=== PATIENT | male | born 1975 | race Caucasian/White ===

== ENCOUNTER 2021-11-24 15:07 | Inpatient (IN) ==
[2021-11-24 15:27] LABS: POC Blood Urea Nitrogen 21 (6-20); POC Calcium, Ionized 1.17 (1.16-1.32); POC Chloride 92 (96-108); POC Creatinine 0.9 (0.6-1.2); POC Glucose, Random > 700 (70-105); POC Potassium 4.8 (3.3-5.1); POC Sodium 127 (133-145)
[2021-11-24] MEDS ORDERED: 0.9 % SODIUM CHLORIDE 1,000 ML IV ONE ×2 (15:45→17:06)
[2021-11-24 16:04] LABS: Basophils % (Auto) 1.1 % (0.0-2.0); Eosinophils # (Auto) 0.08 K/mcL (0.00-0.70); Eosinophils % (Auto) 0.9 % (0.0-7.0); Hematocrit 44.6 % (40.1-51.0); Hemoglobin 15.9 g/dL (13.7-17.5); Lymphocytes # (Auto) 2.27 K/mcL (1.50-4.80); Lymphocytes % (Auto) 25.6 % (15.5-49.0); Mean Cell Volume 91.2 fL (80.0-100.0); Mean Corpuscular HGB Conc 35.7 g/dL (31.0-36.0); Mean Platelet Volume 9.7 fL (7.4-10.4); Monocytes # (Auto) 0.74 K/mcL (0.10-0.90); Monocytes % (Auto) 8.3 % (1.0-12.0); Neutrophils % (Auto) 63.8 % (38.0-78.0); Platelet Count 286 K/mcL (140-440); RBC 4.89 M/mcL (4.63-6.08); Red Cell Distribution Width 11.4 % (11.5-14.5); WBC 8.9 K/mcL (4.5-11.0)
[2021-11-24 16:24] LABS: Beta Hydroxybutyrate 0.29 mmol/L (<0.27)
[2021-11-24 16:28] LABS: Appearance,Urine Clear (Clear); Bilirubin,Urine Negative (Negative); Color,Urine Yellow; Culture Indicated,Urine No; Glucose,Urine (UA) >=1000 mg/dL mg/dL (Negative); Ketones,Urine Negative (Negative); Leukocyte Esterase,Urine Negative /uL (Negative); Nitrate,Urine Negative (Negative); PH,Urine 6.5 (5.0-9.0); Protein,Urine Negative (Negative); Urine Blood Trace-intact ery/mcL (Negative); Urine RBC 0 /hpf (0-3); Urine Squamous Epithelial Cell 0 /hpf (0-4); Urine WBC < 1 /hpf (0-4); Urobilinogen,Urine Normal
[2021-11-24 16:45] LABS: ALT/SGPT 60 U/L (<40); AST/SGOT 38 U/L (<40); Albumin 4.5 gm/dL (3.2-5.2); Albumin/Globulin Ratio 1.6 (1.0-2.3); Alkaline Phosphatase 151 U/L (39-117); Bilirubin,Total 0.9 mg/dL (0.1-1.0); Blood Urea Nitrogen 18 mg/dL (6-20); Calcium 9.8 mg/dL (8.6-10.4); Carbon Dioxide 24 mmol/L (22-30); Chloride 85 mmol/L (96-108); Globulin 2.8 gm/dL (2.2-3.7); Glomerular Filtration Rate 90; Glucose 782 mg/dL (70-105)
[2021-11-24] MEDS ORDERED: INSULIN REGULAR, HUMAN 1 UNIT/0.01 ML UNIT IV ONE (17:07)
--- NOTE | 2021-11-24 17:29 | Emergency Department Note ---
HPI General Chief complaint: Sorethroat Time Seen by Provider: 11/24/21 15:09 Source: patient Mode of arrival: ambulatory History of Present Illness HPI Narrative: 46-year-old male patient with history of hypertension presents with complaints of dry mouth, white plaques to his tongue, increased thirst and urination, and sore throat x4 days. He is concerned about thrush. [id number] blood glucose is over 700. No previous history of diabetes. Of note he also endorses new onset of blurry far vision for the last few days. Related Data Home Medications Medication Instructions Recorded Confirmed amlodipine 10 mg tablet See Rx Instructions PO .COMPLEX 11/04/19 11/24/21 cyclobenzaprine 10 mg tablet See Rx Instructions PO .COMPLEX 11/04/19 11/24/21 hydrocodone 10 mg-acetaminophen See Rx Instructions PO .COMPLEX 11/04/19 11/24/21 325 mg tablet PRN Pain losartan 100 mg tablet See Rx Instructions PO .COMPLEX 11/04/19 11/24/21 omeprazole 40 mg capsule,delayed See Rx Instructions PO .COMPLEX 11/04/19 11/24/21 release rizatriptan 10 mg tablet See Rx Instructions PO .COMPLEX 11/04/19 11/24/21 sildenafil 100 mg tablet See Rx Instructions PO .COMPLEX 11/04/19 11/24/21 gabapentin 300 mg capsule 1 cap PO TID 11/24/21 11/24/21 hydrochlorothiazide 50 mg tablet 1 tab PO QDAY 11/24/21 11/24/21 Allergies Allergy/AdvReac Type Severity Reaction Status Date / Time No Known Drug Allergies Allergy Verified 11/24/21 15:10 Review of Systems ROS ROS Narrative: Narrative: All systems ED: reviewed and negative except as stated. PFSH Narrative Patient History Narrative: Narrative: Medical/Surgical/Family History All Active Problems (Updated 11/24/21 @ 19:47 by Francie Duncan PA-C) Diabetes mellitus, new onset (Acute) Acidosis, lactic (Acute) Acute dehydration (Acute) Oral candidiasis (Acute) Pseudohyponatremia (Acute) Hyperglycemia (Acute) Conjunctivitis (Acute) History of surgery (Chronic) Occipital neuralgia (Chronic) Myofascial pain (Acute) Ankylosing spondylitis (Acute) Inflammatory arthritis (Acute) Polyarthralgia (Acute) Chronic pain (Chronic) Tinea versicolor (Chronic) Chronic neck pain (Acute) Bilateral hand pain (Chronic) Chronic low back pain (Chronic) Generalized anxiety disorder (Chronic) Moderate recurrent major depression (Chronic) Migraines (Chronic) Bilateral carpal tunnel syndrome (Chronic) GERD (gastroesophageal reflux disease) (Chronic) Mixed hyperlipidemia (Chronic) penitentiary current use of non-steroidal anti-inflammatories (NSAID) (Chronic) manager intermediate prescription opiate use (Chronic) Hypertension (Chronic) Marijuana use (Chronic) PAIGE positive (Acute) Calcaneal spur of left foot (Chronic) Calcaneal spur of right foot (Chronic) Peroneal tendinitis, right leg (Chronic) Plantar fasciitis (Chronic) Pes cavus (Chronic) Callus of foot (Chronic) PTSD (post-traumatic stress disorder) (Chronic) Paresthesia of both hands (Chronic) Lumbar radiculitis (Chronic) Cervical radiculopathy (Chronic) Obesity (Chronic) Primary generalized (osteo)arthritis (Chronic) 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) Sinus tarsi syndrome of left foot (Chronic) Os trigonum (Chronic) Equinus deformity of foot, acquired (Chronic) Equinus contracture of ankle (Chronic) Erectile dysfunction (Chronic) Rash and other nonspecific skin eruption (Acute) Laryngopharyngeal reflux (Chronic) Lymphadenopathy of head and neck (Chronic) Unspecified inflammatory polyarthropathy (Chronic) Contact dermatitis (Acute) Pharyngitis (Acute) Urethritis (Chronic) Hypertension, essential, benign (Chronic) Shortness of breath (Chronic) Rhinitis medicamentosa (Chronic) Medical History PAIGE positive Ankylosing spondylitis Bilateral carpal tunnel syndrome Bilateral hand pain Calcaneal spur of left foot Calcaneal spur of right foot Callus of foot Bilateral Cervical radiculopathy Chronic low back pain Chronic neck pain Chronic pain Conjunctivitis Contact dermatitis Equinus contracture of ankle Equinus deformity of foot, acquired Erectile dysfunction Generalized anxiety disorder GERD (gastroesophageal reflux disease) Hypertension Hypertension, essential, benign Inflammatory arthritis Laryngopharyngeal reflux penitentiary current use of non-steroidal anti-inflammatories (NSAID) penitentiary prescription opiate use Lumbar radiculitis Lymphadenopathy of head and neck Marijuana use Migraines Mixed hyperlipidemia Moderate recurrent major depression Myofascial pain Obesity Occipital neuralgia Os trigonum Paresthesia of both hands Peroneal tendinitis, right leg Pes cavus Pharyngitis Plantar fasciitis Polyarthralgia Primary generalized (osteo)arthritis PTSD (post-traumatic stress disorder) Rash and other nonspecific skin eruption Rhinitis medicamentosa Shortness of breath Sinus tarsi syndrome of left foot Sinus tarsi syndrome of right foot Tinea versicolor Unspecified inflammatory polyarthropathy Urethritis Surgical History History of Achilles tendon repair (~2013) Left Achilles tendon lengthening/ankle repair History of surgery MICHAEL #3 w/cath, w/o sed 06/01/2019 MICHAEL #2 w/cath, w/o sed 05/03/19 MICHAEL #1 w/cath, w/o sed 04/06/19 MICHAEL #1 w/cath, w/o sed 09/08/17 MICHAEL #1 w/cath w/o sed 01/20/2017 MICHAEL #3 w/cath w/o sed 09/17/2016 Occipital Nerve Block, Bilat w/o sed 09/17/2016 MICHAEL #2 w/cath w/o sed 07/30/2016 MICHAEL #1 w/cath, w/o sed 07/15/2016 Family History Father Melanoma Chronic pain Son Thyroid disorder Social History Smoking Status: Never smoker Alcohol Intake Frequency: does not drink Substance Use: marijuana Exam Narrative Narrative: General: AOx3, NAD, nontoxic appearing. Pleasant and conversant. HEENT: PERRL, EOMI, normocephalic. Dry mucous membranes. Normal facies and multiple missing teeth. White plaques notable to the tongue and oropharynx. Chest: Symmetric, no pain to palpation Respiratory: Lungs clear to auscultation bilaterally. No respiratory distress. Unlabored breathing. Heart: Regular rate and rhythm, no murmurs/clicks/rubs. Abdomen: Non-tender, Non distended Extremities: Warm and well perfused. No edema. DP 2+ bilaterally. No venous stasis. Neuro: No focal deficits. Cranial nerves II-XII grossly normal. Skin: Warm dry, no rashes or lesions, no cyanosis. Psych: Normal mood and affect Heme/Lymph: No abnormal bruising Course Course Course Narrative: 46-year-old male patient presents with new onset diabetes and thrush Reevaluation(s) Reevaluation #1: Will evaluate for DKA with basic labs Obtain urine We will treat for thrush with oral nystatin swish and spit Establish IV give IV fluids Reevaluation #2: Lactic acid is 4.5. Blood glucose is over 700. Anion gap is normal at 16. Urine is negative for ketones. Will give 7 units of IV regular insulin x1 dose and monitor. Recheck lactic acid after he receives a second liter of fluids Given his new onset diabetes and we are in the weekend, I recommend admission for better control and management. He will need diabetes education. Vital Signs Vital signs: Vital Signs Temperature 97.3 F 11/24/21 15:07 Pulse Rate 92 H 11/24/21 15:07 Respiratory Rate 16 11/24/21 15:07 Blood Pressure 156/95 11/24/21 15:07 Pulse Oximetry (%) 95 11/24/21 15:07 Oxygen Delivery Method 11/24/21 15:07 Temperature 97.3 F 11/24/21 18:45 Pulse Rate 87 11/24/21 18:45 Respiratory Rate 16 11/24/21 18:45 Blood Pressure 161/93 11/24/21 18:45 Pulse Oximetry (%) 93 11/24/21 18:45 Oxygen Delivery Method 11/24/21 15:07 MDM MDM Narrative Medical decision making narrative: New onset diabetes Severe hyperglycemia Lactic acidosis Thrush Patient will need admission for blood glucose control and initiation of antidiabetic medications. I spoke with the hospitalist who has accepted the [facility] for admission. Lab Data Result diagrams: 11/24/21 15:31 11/24/21 15:31 Labs: Lab Results 11/24/21 11/24/21 11/24/21 Range/Units 15:24 15:30 15:31 WBC 8.9 (4.5-11.0) K/mcL RBC 4.89 (4.63-6.08) M/mcL Hgb 15.9 (13.7-17.5) g/dL Hct 44.6 (40.1-51.0) % POC Hct 46.0 (41-55) MCV 91.2 (80.0-100.0) fL MCH 32.5 (26.0-34.0) pg MCHC 35.7 (31.0-36.0) g/dL RDW 11.4 L (11.5-14.5) % Plt Count 286 (140-440) K/mcL MPV 9.7 (7.4-10.4) fL Immature Gran % (Auto) 0.3 (0.0-0.5) % Neut % (Auto) 63.8 (38.0-78.0) % Lymph % (Auto) 25.6 (15.5-49.0) % [place] % (Auto) 8.3 (1.0-12.0) % Eos % (Auto) 0.9 (0.0-7.0) % Baso % (Auto) 1.1 (0.0-2.0) % Lymph # (Auto) 2.27 (1.50-4.80) K/mcL [place] # (Auto) 0.74 (0.10-0.90) K/mcL Eos # (Auto) 0.08 (0.00-0.70) K/mcL Baso # (Auto) 0.10 (0.00-0.30) K/mcL Immature Gran # 0.03 (0.00-0.05) K/mcl Absolute Neutrophils 5.69 (1.80-8.00) K/mcL POC VBG pH 7.41 (7.32-7.42) POC VBG pCO2 at Temp 44.1 (41-51) POC VBG pO2 42 H (25-40) POC VBG HCO3 27.9 (24-28) POC VBG Total CO2 29.0 (25-29) POC Venous O2 Sat 78.0 H (40-70) POC VBG Base Excess 3.0 H (-2-2) VBG Lactic Acid 4.5 H* (0.5-2) POC Sodium 127 L (133-145) Sodium (133-145) mmol/L POC Potassium 4.8 (3.3-5.1) Potassium (3.3-5.1) mmol/L POC Chloride 92 L (96-108) Chloride (96-108) mmol/L Carbon Dioxide (22-30) mmol/L POC Total CO2 28.0 (22-30) Anion Gap (8.0-16.0) POC BUN 21 H (6-20) BUN (6-20) mg/dL Creatinine (0.7-1.2) mg/dL POC Creatinine 0.9 (0.6-1.2) GFR Calculation Glucose (70-105) mg/dL POC Glucose > 700 H* (70-105) Calcium (8.6-10.4) mg/dL POC WB Ioniz Calcium 1.17 (1.16-1.32) Total Bilirubin (0.1-1.0) mg/dL AST (<40) U/L ALT (<40) U/L Alkaline Phosphatase (39-117) U/L Total Protein (5.9-8.4) gm/dL Albumin (3.2-5.2) gm/dL Globulin (2.2-3.7) gm/dL Albumin/Globulin Ratio (1.0-2.3) Beta-Hydroxybutyrate (<0.27) mmol/L Urine Color Urine Appearance (Clear) Urine pH (5.0-9.0) Ur Specific [place] (1.000-1.035) Urine Protein (Negative) mg/dL Urine Glucose (UA) (Negative) mg/dL Urine Ketones (Negative) mg/dL Urine Occult Blood (Negative) tia/mcL Urine Nitrate (Negative) Urine Bilirubin (Negative) mg/dL Urine Urobilinogen mg/dL Ur Leukocyte Esterase (Negative) /uL Urine RBC (0-3) /hpf Urine WBC (0-4) /hpf Ur Squamous Epith Cells (0-4) /hpf Urine Bacteria (0) /hpf Ur Culture Indicated? 11/24/21 11/24/21 11/24/21 Range/Units 15:31 15:31 15:35 WBC (4.5-11.0) K/mcL RBC (4.63-6.08) M/mcL Hgb (13.7-17.5) g/dL Hct (40.1-51.0) % POC Hct (41-55) MCV (80.0-100.0) fL MCH (26.0-34.0) pg MCHC (31.0-36.0) g/dL RDW (11.5-14.5) % Plt Count (140-440) K/mcL MPV (7.4-10.4) fL Immature Gran % (Auto) (0.0-0.5) % Neut % (Auto) (38.0-78.0) % Lymph % (Auto) (15.5-49.0) % [place] % (Auto) (1.0-12.0) % Eos % (Auto) (0.0-7.0) % Baso % (Auto) (0.0-2.0) % Lymph # (Auto) (1.50-4.80) K/mcL [place] # (Auto) (0.10-0.90) K/mcL Eos # (Auto) (0.00-0.70) K/mcL Baso # (Auto) (0.00-0.30) K/mcL Immature Gran # (0.00-0.05) K/mcl Absolute Neutrophils (1.80-8.00) K/mcL POC VBG pH (7.32-7.42) POC VBG pCO2 at Temp (41-51) POC VBG pO2 (25-40) POC VBG HCO3 (24-28) POC VBG Total CO2 (25-29) POC Venous O2 Sat (40-70) POC VBG Base Excess (-2-2) VBG Lactic Acid (0.5-2) POC Sodium (133-145) Sodium 125 L (133-145) mmol/L POC Potassium (3.3-5.1) Potassium 4.6 (3.3-5.1) mmol/L POC Chloride (96-108) Chloride 85 L (96-108) mmol/L Carbon Dioxide 24 (22-30) mmol/L POC Total CO2 (22-30) Anion Gap 16.0 (8.0-16.0) POC BUN (6-20) BUN 18 (6-20) mg/dL Creatinine 1.0 (0.7-1.2) mg/dL POC Creatinine (0.6-1.2) GFR Calculation 90 Glucose 782 H* (70-105) mg/dL POC Glucose (70-105) Calcium 9.8 (8.6-10.4) mg/dL POC WB Ioniz Calcium (1.16-1.32) Total Bilirubin 0.9 (0.1-1.0) mg/dL AST 38 (<40) U/L ALT 60 H (<40) U/L Alkaline Phosphatase 151 H (39-117) U/L Total Protein 7.3 (5.9-8.4) gm/dL Albumin 4.5 (3.2-5.2) gm/dL Globulin 2.8 (2.2-3.7) gm/dL Albumin/Globulin Ratio 1.6 (1.0-2.3) Beta-Hydroxybutyrate 0.29 H (<0.27) mmol/L Urine Color Yellow Urine Appearance Clear (Clear) Urine pH 6.5 (5.0-9.0) Ur Specific [place] 1.010 (1.000-1.035) Urine Protein Negative (Negative) mg/dL Urine Glucose (UA) >=1000 mg/dl A (Negative) mg/dL Urine Ketones Negative (Negative) mg/dL Urine Occult Blood Trace-intact A (Negative) tia/mcL Urine Nitrate Negative (Negative) Urine Bilirubin Negative (Negative) mg/dL Urine Urobilinogen Normal mg/dL Ur Leukocyte Esterase Negative (Negative) /uL Urine RBC 0 (0-3) /hpf Urine WBC < 1 (0-4) /hpf Ur Squamous Epith Cells 0 (0-4) /hpf Urine Bacteria None (0) /hpf Ur Culture Indicated? No 11/24/21 Range/Units 17:46 WBC (4.5-11.0) K/mcL RBC (4.63-6.08) M/mcL Hgb (13.7-17.5) g/dL Hct (40.1-51.0) % POC Hct (41-55) MCV (80.0-100.0) fL MCH (26.0-34.0) pg MCHC (31.0-36.0) g/dL RDW (11.5-14.5) % Plt Count (140-440) K/mcL MPV (7.4-10.4) fL Immature Gran % (Auto) (0.0-0.5) % Neut % (Auto) (38.0-78.0) % Lymph % (Auto) (15.5-49.0) % [place] % (Auto) (1.0-12.0) % Eos % (Auto) (0.0-7.0) % Baso % (Auto) (0.0-2.0) % Lymph # (Auto) (1.50-4.80) K/mcL [place] # (Auto) (0.10-0.90) K/mcL Eos # (Auto) (0.00-0.70) K/mcL Baso # (Auto) (0.00-0.30) K/mcL Immature Gran # (0.00-0.05) K/mcl Absolute Neutrophils (1.80-8.00) K/mcL POC VBG pH 7.40 (7.32-7.42) POC VBG pCO2 at Temp 49.2 (41-51) POC VBG pO2 28 (25-40) POC VBG HCO3 30.8 H (24-28) POC VBG Total CO2 32.0 H (25-29) POC Venous O2 Sat 52.0 (40-70) POC VBG Base Excess 6.0 H* (-2-2) VBG Lactic Acid 1.5 (0.5-2) POC Sodium (133-145) Sodium (133-145) mmol/L POC Potassium (3.3-5.1) Potassium (3.3-5.1) mmol/L POC Chloride (96-108) Chloride (96-108) mmol/L Carbon Dioxide (22-30) mmol/L POC Total CO2 (22-30) Anion Gap (8.0-16.0) POC BUN (6-20) BUN (6-20) mg/dL Creatinine (0.7-1.2) mg/dL POC Creatinine (0.6-1.2) GFR Calculation Glucose (70-105) mg/dL POC Glucose (70-105) Calcium (8.6-10.4) mg/dL POC WB Ioniz Calcium (1.16-1.32) Total Bilirubin (0.1-1.0) mg/dL AST (<40) U/L ALT (<40) U/L Alkaline Phosphatase (39-117) U/L Total Protein (5.9-8.4) gm/dL Albumin (3.2-5.2) gm/dL Globulin (2.2-3.7) gm/dL Albumin/Globulin Ratio (1.0-2.3) Beta-Hydroxybutyrate (<0.27) mmol/L Urine Color Urine Appearance (Clear) Urine pH (5.0-9.0) Ur Specific [place] (1.000-1.035) Urine Protein (Negative) mg/dL Urine Glucose (UA) (Negative) mg/dL Urine Ketones (Negative) mg/dL Urine Occult Blood (Negative) tia/mcL Urine Nitrate (Negative) Urine Bilirubin (Negative) mg/dL Urine Urobilinogen mg/dL Ur Leukocyte Esterase (Negative) /uL Urine RBC (0-3) /hpf Urine WBC (0-4) /hpf Ur Squamous Epith Cells (0-4) /hpf Urine Bacteria (0) /hpf Ur Culture Indicated? Discharge Plan Patient/Caregiver Discharge Instructions Pt seen by HR ASSOCIATE/PA only: Yes Clinical Impression: Diabetes mellitus, new onset, Acidosis, lactic, Acute dehydration Patient Disposition: Xfer As Inpt ([facility]) Discharge Date/Time: 11/24/21 18:57 Discharge Location: [facility]
--- NOTE | 2021-11-24 18:31 | Internal Med History&Physical ---
HPI History of Present Illness Patient information: Note initiated : 11/24/21 at 6:17 pm Service Date, if different from initiated Date: [] Patient: Fermin Ayoub 46 y/o M admitted on for swollen tongue. Chief Complaint: [thrush] Chief complaint: thrush History of present illness: Mr. Ayoub is a 46 year old M history of essential hypertensions, GERD, presenting with 4-day history of tongue thrust, polydipsia, polyuria, and general body weakness. There is no prior similar episode. He does not have a previous history of diabetes. His maternal grandfather had a history of diabetes. Over the past 4 days, he has noticed tongue thrust, general body weakness, polydipsia, and polyuria. He denies any weight changes. He denies any appetite changes. Vital signs at ED presentation significant for elevated blood pressure as high as 170s over 90s mmHg. Rest of the vital signs within normal limits. Labs significant for blood glucose level was elevated to over 700, with pseudohyponatremia serum sodium level 125. Venous blood gas 4.5 with a repeat of 1.5. Ph7.41, with a bicarb of 27.9. Beta hydroxybutyrate 0.29. UA positive for glucose but negative for ketones. No signs of urinary tract infections. Admission request was called for hyper ischemia associated with likely new onset diabetes. Constitutional Constitutional: Present weakness; Absent chills, excessive sweating, fatigue or fever(s) Additional comments: Polydipsia and polyuria EENT Eyes: Absent blurry vision, change in vision, loss of vision or other visual disturbances Ears: Absent decreased hearing or tinnitus Nose, mouth and throat: Absent abnormal hearing, dry mouth, headache(s), nasal congestion or sore throat Additional comments: Tongue thrush Cardiovascular Cardiovascular: Absent chest pain, chest pain at rest, edema, irregular heart rhythm or palpatations Respiratory Respiratory: Absent cough, dyspnea or wheezing Gastrointestinal Gastrointestinal: Absent abdominal pain, constipation, diarrhea, nausea or vomiting Genitourinary Genitourinary: urinary frequency Musculoskeletal Musculoskeletal: Absent back pain, deformity, limited range of motion, muscle cramps, muscle weakness or numbness Integumentary Integumentary: Absent lesions, rash or wounds Neurological Neurological: Absent focal weakness, headache(s) or numbness Psychiatric Psychiatric: Absent anxiety, depression or hallucinations PFSH PFSH All Active Problems (Updated 11/24/21 @ 18:30 by Jose C Jade MD) Oral candidiasis (Acute) Pseudohyponatremia (Acute) Hyperglycemia (Acute) Conjunctivitis (Acute) History of surgery (Chronic) Occipital neuralgia (Chronic) Myofascial pain (Acute) Ankylosing spondylitis (Acute) Inflammatory arthritis (Acute) Polyarthralgia (Acute) Chronic pain (Chronic) Tinea versicolor (Chronic) Chronic neck pain (Acute) Bilateral hand pain (Chronic) Chronic low back pain (Chronic) Generalized anxiety disorder (Chronic) Moderate recurrent major depression (Chronic) Migraines (Chronic) Bilateral carpal tunnel syndrome (Chronic) GERD (gastroesophageal reflux disease) (Chronic) Mixed hyperlipidemia (Chronic) alf current use of non-steroidal anti-inflammatories (NSAID) (Chronic) [employer] prescription opiate use (Chronic) Hypertension (Chronic) Marijuana use (Chronic) PAIGE positive (Acute) Calcaneal spur of left foot (Chronic) Calcaneal spur of right foot (Chronic) Peroneal tendinitis, right leg (Chronic) Plantar fasciitis (Chronic) Pes cavus (Chronic) Callus of foot (Chronic) PTSD (post-traumatic stress disorder) (Chronic) Paresthesia of both hands (Chronic) Lumbar radiculitis (Chronic) Cervical radiculopathy (Chronic) Obesity (Chronic) Primary generalized (osteo)arthritis (Chronic) 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) Sinus tarsi syndrome of left foot (Chronic) Os trigonum (Chronic) Equinus deformity of foot, acquired (Chronic) Equinus contracture of ankle (Chronic) Erectile dysfunction (Chronic) Rash and other nonspecific skin eruption (Acute) Laryngopharyngeal reflux (Chronic) Lymphadenopathy of head and neck (Chronic) Unspecified inflammatory polyarthropathy (Chronic) Contact dermatitis (Acute) Pharyngitis (Acute) Urethritis (Chronic) Hypertension, essential, benign (Chronic) Shortness of breath (Chronic) Rhinitis medicamentosa (Chronic) Medical History PAIGE positive Ankylosing spondylitis Bilateral carpal tunnel syndrome Bilateral hand pain Calcaneal spur of left foot Calcaneal spur of right foot Callus of foot Bilateral Cervical radiculopathy Chronic low back pain Chronic neck pain Chronic pain Conjunctivitis Contact dermatitis Equinus contracture of ankle Equinus deformity of foot, acquired Erectile dysfunction Generalized anxiety disorder GERD (gastroesophageal reflux disease) Hypertension Hypertension, essential, benign Inflammatory arthritis Laryngopharyngeal reflux alf current use of non-steroidal anti-inflammatories (NSAID) alf prescription opiate use Lumbar radiculitis Lymphadenopathy of head and neck Marijuana use Migraines Mixed hyperlipidemia Moderate recurrent major depression Myofascial pain Obesity Occipital neuralgia Os trigonum Paresthesia of both hands Peroneal tendinitis, right leg Pes cavus Pharyngitis Plantar fasciitis Polyarthralgia Primary generalized (osteo)arthritis PTSD (post-traumatic stress disorder) Rash and other nonspecific skin eruption Rhinitis medicamentosa Shortness of breath Sinus tarsi syndrome of left foot Sinus tarsi syndrome of right foot Tinea versicolor Unspecified inflammatory polyarthropathy Urethritis Surgical History History of Achilles tendon repair (~2013) Left Achilles tendon lengthening/ankle repair History of surgery MICHAEL #3 w/cath, w/o sed 06/01/2019 MICHAEL #2 w/cath, w/o sed 05/03/19 MICHAEL #1 w/cath, w/o sed 04/06/19 MICHAEL #1 w/cath, w/o sed 09/08/17 MICHAEL #1 w/cath w/o sed 01/20/2017 MICHAEL #3 w/cath w/o sed 09/17/2016 Occipital Nerve Block, Bilat w/o sed 09/17/2016 MICHAEL #2 w/cath w/o sed 07/30/2016 MICHAEL #1 w/cath, w/o sed 07/15/2016 Family History Father Melanoma Chronic pain Son Thyroid disorder Social History marital status: single occupational status: disabled physical activity: none alcohol intake frequency: does not drink substance use type: marijuana MEDS/ALLERGIES Home Medications and Allergies Home Medications Medication Instructions Recorded Confirmed Type pregabalin 75 mg capsule (Lyrica) 75 mg PO QDAY 10/25/19 05/22/20 History amlodipine 10 mg tablet See Rx Instructions PO .COMPLEX 11/04/19 05/22/20 History bupropion HCl 100 mg tablet See Rx Instructions PO .COMPLEX 11/04/19 05/22/20 History cyclobenzaprine 10 mg tablet See Rx Instructions PO .COMPLEX 11/04/19 05/22/20 History diclofenac submicronized 18 mg See Rx Instructions PO .COMPLEX 11/04/19 05/22/20 History capsule hydrocodone 10 mg-acetaminophen See Rx Instructions PO .COMPLEX PRN 11/04/19 05/22/20 History 325 mg tablet losartan 100 mg tablet See Rx Instructions PO .COMPLEX 11/04/19 05/22/20 History omeprazole 40 mg capsule,delayed See Rx Instructions PO .COMPLEX 11/04/19 05/22/20 History release rizatriptan 10 mg tablet See Rx Instructions PO .COMPLEX 11/04/19 05/22/20 History sildenafil 100 mg tablet See Rx Instructions PO .COMPLEX 11/04/19 05/22/20 History Allergies Allergy/AdvReac Type Severity Reaction Status Date / Time No Known Drug Allergies Allergy Verified 11/24/21 15:10 EXAM Constitutional Vitals: Temp Pulse Resp BP Pulse Ox O2 Del Method 36.3 C 87 16 154/91 95 11/24/21 15:07 11/24/21 17:47 11/24/21 15:07 11/24/21 17:47 11/24/21 17:47 11/24/21 15:07 General appearance: cooperative and no acute distress Head Head exam: Present atraumatic and normocephalic Eye Eye exam: Present EOMI and PERRL ENT ENT exam: Present mucous membranes moist and normal external ear exam; Absent normal exam Additional comments: tongue thrush Neck Neck exam: Present normal inspection; Absent lymphadenopathy, tenderness or thyromegaly Respiratory Respiratory exam: Absent accessory muscle use, respiratory distress or wheezes Cardiovascular Cardiovascular exam: Present normal rate and rhythm; Absent JVD GI/Abdominal GI/Abdominal exam: Present normal bowel sounds and soft; Absent organomegaly or tenderness Rectal Rectal exam: Present deferred Extremities Exam Extremities exam: Present full ROM, normal capillary refill and normal inspection; Absent tenderness Neurological Exam Neurological exam: Present alert, CN II-XII intact and oriented X3; Absent motor sensory deficit Psychiatric Psychiatric exam: Present normal affect and normal mood; Absent anxious or depressed Skin Skin exam: Present dry and intact DATA Data Completed and Pending Labs: Labs from last 24 hours 11/24/21 11/24/21 11/24/21 17:46 15:35 15:31 WBC RBC Hgb Hct POC Hct MCV MCH MCHC RDW Plt Count MPV Immature Gran % (Auto) Neut % (Auto) Lymph % (Auto) Callahan % (Auto) Eos % (Auto) Baso % (Auto) Lymph # (Auto) Callahan # (Auto) Eos # (Auto) Baso # (Auto) Immature Gran # Absolute Neutrophils POC VBG pH 7.40 POC VBG pCO2 at Temp 49.2 POC VBG pO2 28 POC VBG HCO3 30.8 H POC VBG Total CO2 32.0 H POC Venous O2 Sat 52.0 POC VBG Base Excess 6.0 H* VBG Lactic Acid 1.5 POC Sodium Sodium POC Potassium Potassium POC Chloride Chloride Carbon Dioxide POC Total CO2 Anion Gap POC BUN BUN Creatinine POC Creatinine GFR Calculation Glucose POC Glucose Calcium POC WB Ioniz Calcium Total Bilirubin AST ALT Alkaline Phosphatase Total Protein Albumin Globulin Albumin/Globulin Ratio Beta-Hydroxybutyrate 0.29 H Urine Color Yellow Urine Appearance Clear Urine pH 6.5 Ur Specific [place] 1.010 Urine Protein Negative Urine Glucose (UA) >=1000 mg/dl A Urine Ketones Negative Urine Occult Blood Trace-intact A Urine Nitrate Negative Urine Bilirubin Negative Urine Urobilinogen Normal Ur Leukocyte Esterase Negative Urine RBC 0 Urine WBC < 1 Ur Squamous Epith Cells 0 Urine Bacteria None Ur Culture Indicated? No 11/24/21 11/24/21 11/24/21 15:31 15:31 15:30 WBC 8.9 RBC 4.89 Hgb 15.9 Hct 44.6 POC Hct MCV 91.2 MCH 32.5 MCHC 35.7 RDW 11.4 L Plt Count 286 MPV 9.7 Immature Gran % (Auto) 0.3 Neut % (Auto) 63.8 Lymph % (Auto) 25.6 Callahan % (Auto) 8.3 Eos % (Auto) 0.9 Baso % (Auto) 1.1 Lymph # (Auto) 2.27 Callahan # (Auto) 0.74 Eos # (Auto) 0.08 Baso # (Auto) 0.10 Immature Gran # 0.03 Absolute Neutrophils 5.69 POC VBG pH 7.41 POC VBG pCO2 at Temp 44.1 POC VBG pO2 42 H POC VBG HCO3 27.9 POC VBG Total CO2 29.0 POC Venous O2 Sat 78.0 H POC VBG Base Excess 3.0 H VBG Lactic Acid 4.5 H* POC Sodium Sodium 125 L POC Potassium Potassium 4.6 POC Chloride Chloride 85 L Carbon Dioxide 24 POC Total CO2 Anion Gap 16.0 POC BUN BUN 18 Creatinine 1.0 POC Creatinine GFR Calculation 90 Glucose 782 H* POC Glucose Calcium 9.8 POC WB Ioniz Calcium Total Bilirubin 0.9 AST 38 ALT 60 H Alkaline Phosphatase 151 H Total Protein 7.3 Albumin 4.5 Globulin 2.8 Albumin/Globulin Ratio 1.6 Beta-Hydroxybutyrate Urine Color Urine Appearance Urine pH Ur Specific Enterprise Urine Protein Urine Glucose (UA) Urine Ketones Urine Occult Blood Urine Nitrate Urine Bilirubin Urine Urobilinogen Ur Leukocyte Esterase Urine RBC Urine WBC Ur Squamous Epith Cells Urine Bacteria Ur Culture Indicated? 11/24/21 15:24 WBC RBC Hgb Hct POC Hct 46.0 MCV MCH MCHC RDW Plt Count MPV Immature Gran % (Auto) Neut % (Auto) Lymph % (Auto) Callahan % (Auto) Eos % (Auto) Baso % (Auto) Lymph # (Auto) Callahan # (Auto) Eos # (Auto) Baso # (Auto) Immature Gran # Absolute Neutrophils POC VBG pH POC VBG pCO2 at Temp POC VBG pO2 POC VBG HCO3 POC VBG Total CO2 POC Venous O2 Sat POC VBG Base Excess VBG Lactic Acid POC Sodium 127 L Sodium POC Potassium 4.8 Potassium POC Chloride 92 L Chloride Carbon Dioxide POC Total CO2 28.0 Anion Gap POC BUN 21 H BUN Creatinine POC Creatinine 0.9 GFR Calculation Glucose POC Glucose > 700 H* Calcium POC WB Ioniz Calcium 1.17 Total Bilirubin AST ALT Alkaline Phosphatase Total Protein Albumin Globulin Albumin/Globulin Ratio Beta-Hydroxybutyrate Urine Color Urine Appearance Urine pH Ur Specific Enterprise Urine Protein Urine Glucose (UA) Urine Ketones Urine Occult Blood Urine Nitrate Urine Bilirubin Urine Urobilinogen Ur Leukocyte Esterase Urine RBC Urine WBC Ur Squamous Epith Cells Urine Bacteria Ur Culture Indicated? A/P Assessment and plan (1) Hyperglycemia: Status: Acute (2) Pseudohyponatremia: Status: Acute (3) Migraines: Status: Chronic (4) GERD (gastroesophageal reflux disease): Status: Chronic (5) Hypertension: Status: Chronic (6) Oral candidiasis: Status: Acute Narrative A/P Narrative: Assessment and Plans: 1. Hypercalcemia likely new onset diabetes: In patients MedSurg Status post regular insulin and IV fluid boluses given in the ED Hemoglobin A1c Weight-based insulin Lantus 0.5 unit/kg body weight according to obesity level which means 50 units subacute qHS High dose SSI AC HS Accu Chek AC HS Hypoglycemia protocol Diabetic diet Diabetes education 2. Oral candidiasis: Nystatin SSW 3. Essential Hypertension: Losartan Amlodipine Hydralazine 10mg IV q4-6hr PRN SBP>=180 and/or DBP>=110mmHg 4. GERD: Continue oral PPI from home regimen 5. Migraine headache: Rizatriptan PRN migraine headache GI ppx: Continue oral PPI from home regimen DVT ppx: Lovenox Code status: Full Prognosis: stable Disposition: inpatient med surg Time Spent With Patient Time: Total time spent is greater than 50% in coordination of care (as documented) at patient's floor/unit and/or counseling patient: Total time spent with greater than 50% in coordination of care (as documented) at patient's floor/unit and/or counseling patient:: 50 - 70 minutes
[2021-11-24] MEDS ORDERED: ONDANSETRON 4 MG/2 ML VIAL IV PRN (19:14)
[2021-11-24] MEDS ORDERED: ACETAMINOPHEN 325 MG TABLET PO PRN (19:14)
[2021-11-24] MEDS ORDERED: DEXTROSE 31 GM ORAL.SUSP PO PRN (19:14)
[2021-11-24] MEDS ORDERED: ZOLPIDEM 5 MG TABLET PO PRN (19:14)
[2021-11-24] MEDS ORDERED: DEXTROSE 50% 50 ML VIAL IV PRN (19:14)
[2021-11-24] MEDS ORDERED: IBUPROFEN 600 MG TABLET PO PRN (19:14)
[2021-11-24] MEDS ORDERED: hydrALAZINE 20 MG/ML VIAL IV PRN (19:14)
[2021-11-24] MEDS ORDERED: IPRATROPIUM/ALBUTEROL 3 ML AMPUL.NEB NEB PRN (19:14)
[2021-11-24 19:54] LABS: Hemoglobin A1C 10.9 % Hgb (4.0-6.0)
[2021-11-24] MEDS ORDERED: RIZATRIPTAN 10 MG TABLET SL PRN (20:00)
[2021-11-24] MEDS: INSULIN GLARGINE, HUMAN 1 UNIT/0.01 ML SQ SCH (21:20)
[2021-11-24] MEDS: DOCUSATE SODIUM 100 MG CAPSULE PO SCH (21:20)
[2021-11-24] MEDS: NYSTATIN 500,000 UNITS/5 ML ORAL.SUSP SSP SCH (21:20)
[2021-11-24] MEDS: SENNOSIDES 1 TABLET PO SCH (21:20)
[2021-11-24] MEDS: INSULIN LISPRO 1 UNIT/0.01 ML UNIT SQ SCH ×2 (21:22→23:02)
[2021-11-24] MEDS: 0.9 % SODIUM CHLORIDE 10 ML SYRINGE IV SCH (21:23)
[2021-11-24] MEDS: HYDROcodone/APAP 10/325MG TABLET PO PRN (23:03)
[2021-11-25] MEDS: 0.9 % SODIUM CHLORIDE 10 ML SYRINGE IV SCH ×3 (05:22→21:58)
[2021-11-25] MEDS: HYDROcodone/APAP 10/325MG TABLET PO PRN ×3 (05:23→19:53)
[2021-11-25] MEDS: CYCLOBENZAPRINE 10 MG TABLET PO PRN ×3 (05:25→21:56)
[2021-11-25 06:03] LABS: Basophils # (Auto) 0.11 K/mcL (0.00-0.30); Basophils % (Auto) 1.4 % (0.0-2.0); Eosinophils # (Auto) 0.17 K/mcL (0.00-0.70); Eosinophils % (Auto) 2.2 % (0.0-7.0); Hematocrit 42.7 % (40.1-51.0); Hemoglobin 15.4 g/dL (13.7-17.5); Lymphocytes # (Auto) 2.61 K/mcL (1.50-4.80); Lymphocytes % (Auto) 33.5 % (15.5-49.0); Mean Cell Volume 89.7 fL (80.0-100.0); Mean Corpuscular HGB Conc 36.1 g/dL (31.0-36.0); Mean Platelet Volume 9.4 fL (7.4-10.4); Monocytes # (Auto) 0.58 K/mcL (0.10-0.90); Monocytes % (Auto) 7.4 % (1.0-12.0); Neutrophils % (Auto) 55.2 % (38.0-78.0); Platelet Count 273 K/mcL (140-440); RBC 4.76 M/mcL (4.63-6.08); Red Cell Distribution Width 11.4 % (11.5-14.5); WBC 7.8 K/mcL (4.5-11.0)
[2021-11-25 06:19] LABS: Blood Urea Nitrogen 16 mg/dL (6-20); Calcium 8.9 mg/dL (8.6-10.4); Carbon Dioxide 24 mmol/L (22-30); Chloride 97 mmol/L (96-108); Glomerular Filtration Rate 114; Glucose 237 mg/dL (70-105); Phosphorous 3.6 mg/dL (2.5-4.5)
[2021-11-25] MEDS: INSULIN LISPRO 1 UNIT/0.01 ML UNIT SQ SCH ×4 (07:22→21:56)
[2021-11-25] MEDS: OMEPRAZOLE 20 MG CAPSULE PO SCH ×2 (08:04→21:58)
[2021-11-25] MEDS: ENOXAPARIN 40 MG/0.4 ML SYRINGE SQ SCH (08:04)
[2021-11-25] MEDS: amLODIPine 10 MG TABLET PO SCH (08:04)
[2021-11-25] MEDS: DOCUSATE SODIUM 100 MG CAPSULE PO SCH ×2 (08:04→21:56)
[2021-11-25] MEDS: LOSARTAN 50 MG TABLET PO SCH (08:04)
[2021-11-25] MEDS: NYSTATIN 500,000 UNITS/5 ML ORAL.SUSP SSP SCH ×4 (08:04→21:56)
--- NOTE | 2021-11-25 08:19 | Internal Med Progress Note ---
SUBJECTIVE Subjective Patient information: Note initiated : 11/25/21 at 8:15 am Service Date, if different from initiated Date: [] Patient: Fermin Ayoub 46 y/o M admitted on 11/24/21 for swollen tongue. Chief Complaint: [] Interval history: Mr. Ayoub is a 46 year old M history of essential hypertensions, GERD, presenting with 4-day history of tongue thrust, polydipsia, polyuria, and general body weakness. There is no prior similar episode. He does not have a previous history of diabetes. His maternal grandfather had a history of diab etes. Over the past 4 days, he has noticed tongue thrust, general body weakness, polydipsia, and polyuria. He denies any weight changes. He denies any appetite changes. Vital signs at ED presentation significant for elevated blood pressure as high as 170s over 90s mmHg. Rest of the vital signs within normal limits. Labs significant for blood glucose level was elevated to over 700, with pseudohyponatremia serum sodium level 125. Venous blood gas 4.5 with a repeat of 1.5. Ph7.41, with a bicarb of 27.9. Beta hydroxybutyrate 0.29. UA positive for glucose but negative for ketones. No signs of urinary tract infections. Admission request was called for hyper ischemia associated with [place] new onset diabetes. 11/25: Hemoglobin A1c 10.9. Blood glucose at 5:23 AM this morning 247, and it went up to 302 at 7:22 AM. Blood pressure is better controlled at 151/97 at 4 AM this morning. Patient was committing of throbbing headache earlier this morning but now is resolved. Patient denies any GI upset such as nausea or vomiting. Still having polydipsia and polyuria. Pending diabetes education. Continue basal bolus insulin regimen to better control blood sugar. Continue diabetic diet. Constitutional Vitals: Vital Signs Temp Pulse Resp BP Pulse Ox O2 Del Method O2 Flow Rate 36.3 C 72 20 151/97 97 0 11/25/21 04:00 11/25/21 04:00 11/25/21 04:00 11/25/21 04:00 11/25/21 04:00 11/25/21 04:00 11/25/21 04:00 Period Temp Pulse Resp BP Sys/Johnson Pulse Ox O2 Del Method O2 Flow Rate Last 24 Hr 36.1 C-37.3 C 72-95 16-20 128-177/83-105 92-98 Room Air-Room Air 0-0 Intake and Output 11/24/21 11/25/21 11/25/21 21:59 05:59 13:59 Intake Total 2600 600 Output Total 600 950 Balance 1999 -350 Weight 102.965 kg Intake & Output: Intake & Output 11/24/21 11/25/21 11/25/21 21:59 05:59 13:59 Intake Total 2600 600 Output Total 600 950 Balance 1999 -350 Weight 102.965 kg Intake: IV 2000 Sodium Chloride 0.9% 1,000 ml @ 2000 Wide Open IV BOLUS ONE Rx#: [id number] Oral 600 600 Output: Void Amount 600 950 Other: Meal Admit Snack Percent of Meal Consumed 100% Feeding Ability Independent Urine Appearance Clear Clear Urine Color Pale Dark Yellow Urine Odor Normal Normal Head Head exam: Present atraumatic and normal inspection Eye Eye exam: Present normal appearance ENT ENT exam: Present mucous membranes moist and normal external ear exam; Absent normal exam Additional comments: oral thrush Neck Neck exam: Present normal inspection Respiratory Respiratory exam: Present normal respiratory exam Cardiovascular Cardiovascular exam: Present normal rate and rhythm GI/Abdominal GI/Abdominal exam: Present normal bowel sounds Back Exam Back exam: Present normal inspection Neurological Exam Neurological exam: Present alert and oriented X3 Skin Skin exam: Present intact and warm OBJ DATA Labs CBC & Chem 7: 11/25/21 05:07 11/25/21 05:07 Labs: Abnormal Lab Results 11/25/21 11/25/21 11/24/21 05:07 05:07 17:46 MCHC 36.1 H RDW 11.4 L POC VBG pO2 POC VBG HCO3 30.8 H POC VBG Total CO2 32.0 H POC Venous O2 Sat POC VBG Base Excess 6.0 H* VBG Lactic Acid POC Sodium Sodium 132 L POC Chloride Chloride POC BUN Glucose 237 H POC Glucose Hemoglobin A1c ALT Alkaline Phosphatase Beta-Hydroxybutyrate Urine Glucose (UA) Urine Occult Blood 11/24/21 11/24/21 11/24/21 15:35 15:31 15:31 MCHC RDW POC VBG pO2 POC VBG HCO3 POC VBG Total CO2 POC Venous O2 Sat POC VBG Base Excess VBG Lactic Acid POC Sodium Sodium POC Chloride Chloride POC BUN Glucose POC Glucose Hemoglobin A1c 10.9 H ALT Alkaline Phosphatase Beta-Hydroxybutyrate 0.29 H Urine Glucose (UA) >=1000 mg/dl A Urine Occult Blood Trace-intact A 11/24/21 11/24/21 11/24/21 15:31 15:31 15:30 MCHC RDW 11.4 L POC VBG pO2 42 H POC VBG HCO3 POC VBG Total CO2 POC Venous O2 Sat 78.0 H POC VBG Base Excess 3.0 H VBG Lactic Acid 4.5 H* POC Sodium Sodium 125 L POC Chloride Chloride 85 L POC BUN Glucose 782 H* POC Glucose Hemoglobin A1c ALT 60 H Alkaline Phosphatase 151 H Beta-Hydroxybutyrate Urine Glucose (UA) Urine Occult Blood 11/24/21 15:24 MCHC RDW POC VBG pO2 POC VBG HCO3 POC VBG Total CO2 POC Venous O2 Sat POC VBG Base Excess VBG Lactic Acid POC Sodium 127 L Sodium POC Chloride 92 L Chloride POC BUN 21 H Glucose POC Glucose > 700 H* Hemoglobin A1c ALT Alkaline Phosphatase Beta-Hydroxybutyrate Urine Glucose (UA) Urine Occult Blood Meds: Medications Acetaminophen (Acetaminophen 325 Mg Tablet) 650 mg PO Q6HP PRN; Protocol PRN Reason: Per Pain Protocol/Fever > 101 Hydrocodone Bitart/Acetaminophen (Hydrocodone/Apap 10/325mg Tablet) 1 tab PO Q6HP PRN; Protocol PRN Reason: Per Pain Protocol Last Admin: 11/25/21 05:23 Dose: 1 tab Albuterol/Ipratropium (Ipratropium/Albuterol 3 Ml Ampul.Neb) 3 ml NEB Q4HRT PRN PRN Reason: Wheezing Amlodipine Besylate (Amlodipine 10 Mg Tablet) 10 mg PO DAILY [facility] Last Admin: 11/25/21 08:04 Dose: 10 mg Cyclobenzaprine HCl (Cyclobenzaprine 10 Mg Tablet) 10 mg PO TIDP PRN PRN Reason: Muscle Spasm Last Admin: 11/25/21 05:25 Dose: 10 mg Dextrose (Dextrose 50% 50 Ml Vial) 0 ml IV UD PRN PRN Reason: Per Sliding Scale Diagnostic Test (Pha) (Accu-Chek 1 Each Strip) 1 each FS ACHS [facility] Last Admin: 11/25/21 07:22 Dose: 1 each Docusate Sodium (Docusate Sodium 100 Mg Capsule) 100 mg PO BID [facility] Last Admin: 11/25/21 08:04 Dose: 100 mg Enoxaparin Sodium (Enoxaparin 40 Mg/0.4 Ml Syringe) 40 mg SQ DAILY [facility] Last Admin: 11/25/21 08:04 Dose: 40 mg Glucose (Dextrose 31 Gm Oral.Susp) 15 gm PO PRN PRN PRN Reason: Hypoglycemia Hydralazine HCl (Hydralazine 20 Mg/Ml Vial) 10 mg IV Q4-6HP PRN PRN Reason: Hypertension Ibuprofen (Ibuprofen 600 Mg Tablet) 600 mg PO QIDP PRN; Protocol PRN Reason: Per Pain Protocol/Fever > 101 Last Admin: 11/25/21 07:45 Dose: 600 mg Insulin Glargine (Insulin Glargine, Human 1 Unit/0.01 Ml) 50 unit SQ [facility] Last Admin: 11/24/21 21:20 Dose: 50 units Insulin Human Lispro (Insulin Lispro 1 Unit/0.01 Ml Unit) 0 unit SQ [facility]; Protocol Last Admin: 11/25/21 07:22 Dose: 15 units Losartan Potassium (Losartan 50 Mg Tablet) 100 mg PO DAILY [facility] Last Admin: 11/25/21 08:04 Dose: 100 mg Nystatin (Nystatin 500,000 Units/5 Ml Oral.Susp) 500,000 units SSP QID [facility] Last Admin: 11/25/21 08:04 Dose: 500,000 units Omeprazole (Omeprazole 20 Mg Capsule) 40 mg PO BID [facility] Last Admin: 11/25/21 08:04 Dose: 40 mg Ondansetron HCl (Ondansetron 4 Mg/2 Ml Vial) 4 mg IV Q6HP PRN PRN Reason: Nausea And Vomiting Rizatriptan 10 Mg (Tablet) 1 dose SL ONCE PRN PRN Reason: Migraine Headache Senna (Sennosides 1 Tablet) 2 tab PO HS [facility] Last Admin: 11/24/21 21:20 Dose: 2 tab Sodium Chloride (0.9 % Sodium Chloride 10 Ml Syringe) 10 ml IV Q8 [facility] Last Admin: 11/25/21 05:22 Dose: 10 ml Zolpidem Tartrate (Zolpidem 5 Mg Tablet) 5 mg PO HSP PRN PRN Reason: Insomnia A/P Assessment and plan (1) Hyperglycemia: Status: Acute (2) Pseudohyponatremia: Status: Acute (3) Migraines: Status: Chronic (4) GERD (gastroesophageal reflux disease): Status: Chronic (5) Hypertension: Status: Chronic (6) Oral candidiasis: Status: Acute Narrative A/P Narrative: Assessment and Plans: 1. Hypercalcemia, new onset diabetes: In patients MedSurg Status post regular insulin and IV fluid boluses given in the ED Hemoglobin A1c 10.9 Weight-based insulin Lantus 0.5 unit/kg body weight according to obesity level which means 50 units subacute qHS High dose SSI AC HS Accu Chek AC HS Hypoglycemia protocol Diabetic diet Diabetes education 2. Oral candidiasis: Nystatin SSW 3. Essential Hypertension: Losartan Amlodipine Hydralazine 10mg IV q4-6hr PRN SBP>=180 and/or DBP>=110mmHg 4. GERD: Continue oral PPI from home regimen 5. Migraine headache: Rizatriptan PRN migraine headache GI ppx: Continue oral PPI from home regimen DVT ppx: Lovenox Code status: Full Prognosis: stable Disposition: inpatient med surg Time Spent With Patient Time: Total time spent is greater than 50% in coordination of care (as documented) at patient's floor/unit and/or counseling patient: Total time spent with greater than 50% in coordination of care (as documented) at patient's floor/unit and/or counseling patient:: 35 - 50 minutes
[2021-11-25] MEDS: metFORMIN 500 MG TABLET PO SCH ×2 (10:15→16:46)
[2021-11-25] MEDS: INSULIN GLARGINE, HUMAN 1 UNIT/0.01 ML SQ SCH (21:57)
[2021-11-25] MEDS: SENNOSIDES 1 TABLET PO SCH (21:58)
[2021-11-26] MEDS: HYDROcodone/APAP 10/325MG TABLET PO PRN ×3 (01:32→11:57)
[2021-11-26] MEDS: 0.9 % SODIUM CHLORIDE 10 ML SYRINGE IV SCH (05:56)
[2021-11-26] MEDS: INSULIN LISPRO 1 UNIT/0.01 ML UNIT SQ SCH ×2 (07:22→11:57)
[2021-11-26] MEDS: metFORMIN 500 MG TABLET PO SCH (07:23)
[2021-11-26] MEDS: DOCUSATE SODIUM 100 MG CAPSULE PO SCH (08:54)
[2021-11-26] MEDS: LOSARTAN 50 MG TABLET PO SCH (08:54)
[2021-11-26] MEDS: amLODIPine 10 MG TABLET PO SCH (08:55)
[2021-11-26] MEDS: NYSTATIN 500,000 UNITS/5 ML ORAL.SUSP SSP SCH (08:55)
[2021-11-26] MEDS: OMEPRAZOLE 20 MG CAPSULE PO SCH (08:55)
[2021-11-26] MEDS: ENOXAPARIN 40 MG/0.4 ML SYRINGE SQ SCH (08:55)
--- NOTE | 2021-11-26 10:21 | Discharge Summary ---
Discharge Provider Provider IMPORTANT FOLLOW-UP INFORMATION FOR PCP: 1. Diabetic education 2. Adjust DM2 regimen 3. F/u with podiatry Patient information: Note initiated : 11/26/21 at 10:21 am Service Date, if different from initiated Date: [] Patient: Fermin Ayoub 46 y/o M admitted on 11/24/21 for swollen tongue. Chief Complaint: [] Date of admission: 11/24/21 18:57 Discharge date: 11/26/21 Primary care physician: Kirsten Sneed Consults: 11/24/21 Consult to Physician [CONS] Stat Comment: Consulting Provider: Jose C Jade Reason For Exam: Physician to Consult Attending physician on discharge: [facility]o COURSE Hospital Course Hospital course: Mr. Ayoub is a 46 year old M history of essential hypertensions, GERD, presenting with 4-day history of tongue thrust, polydipsia, polyuria, and general body weakness. There is no prior similar episode. He does not have a previous history of diabetes. His maternal grandfather had a history of diabetes. Over the past 4 days, he has noticed tongue thrust, general body weakness, polydipsia, and polyuria. He denies any weight changes. He denies any appetite changes. Vital signs at ED presentation significant for elevated blood pressure as high as 170s over 90s mmHg. Rest of the vital signs within normal limits. Labs significant for blood glucose level was elevated to over 7 00, with pseudohyponatremia serum sodium level 125. Venous blood gas 4.5 with a repeat of 1.5. Ph7.41, with a bicarb of 27.9. Beta hydroxybutyrate 0.29. UA positive for glucose but negative for ketones. No signs of urinary tract infections. Admission request was called for hyper ischemia associated with likely new onset diabetes. 11/25: Hemoglobin A1c 10.9. Blood glucose at 5:23 AM this morning 247, and it went up to 302 at 7:22 AM. Blood pressure is better controlled at 151/97 at 4 AM this morning. Patient was committing of throbbing headache earlier this morning but now is resolved. Patient denies any GI upset such as nausea or vomiting. Still having polydipsia and polyuria. 11/26: I took over the care of this patient on hospital day #3 at which point he was medically optimized for discharge to home. He will be discharged on Lantus 50 units nightly and have added lispro 15 units 3 times daily with meals. He will also go home with metformin 1000 mg p.o. twice daily. He will continue diabetes education and will need to follow-up with podiatry and with his primary care physician. Discharge diagnosis: HHS, severe hyperglycemia, newly diagnosed diabetes mellitus type 2 Reason for admission: Malaise, polydipsia, polyuria Time Spent with Patient Time attestation: Total time spent providing and/or coordinating discharge services: Time spent: Greater than 30 minutes EXAM Constitutional Vitals: Temp Pulse Resp BP Pulse Ox O2 Del Method O2 Flow Rate 97 F 71 18 151/103 97 0 11/26/21 07:56 11/26/21 07:56 11/26/21 08:00 11/26/21 07:56 11/26/21 08:00 11/26/21 08:00 11/25/21 04:00 General appearance: average body habitus Head Head exam: Present atraumatic, normal inspection and normocephalic Eye Eye exam: Present EOMI, normal appearance and PERRL; Absent conjunctival injection ENT ENT exam: Present normal exam; Absent mucous membranes dry Neck Neck exam: Present full ROM; Absent lymphadenopathy Respiratory Respiratory exam: Present normal respiratory exam and CTAB; Absent decreased breath sounds, respiratory distress or wheezes Cardiovascular Cardiovascular exam: Present normal rate and rhythm and RRR; Absent JVD GI/Abdominal GI/Abdominal exam: Present normal bowel sounds and soft; Absent diminished bowel sounds, distended, guarding, mass, rebound or tenderness Neurological Exam Neurological exam: Present alert, CN II-XII intact and oriented X3 Psychiatric Psychiatric exam: Present normal affect and normal mood Skin Skin exam: Present intact and warm; Absent erythema, pallor, petechiae or rash Discharge Plan Patient/Caregiver Discharge Instructions Activity: increase activity as tolerated Diet: Consistent Carbohydrate Instructions: Foot Care for People with Diabetes (GEN), Type 2 Diabetes in Adults: New Diagnosis (GEN), Basic Carbohydrate Counting (GEN), Meal Planning with Diabetes Exchanges (GEN), Diabetic Peripheral Neuropathy (GEN), Diabetic Hyperglycemia (GEN) Prescriptions: New Accu-Chek 1 ea FS ACHS 30 Days Qty: 1 0RF metformin 500 mg Tablet 1,000 mg PO BIDCC 30 Days Qty: 120 0RF insulin glargine [Lantus U-100 Insulin] 100 unit/mL Solution 50 unit SQ HS 30 Days Qty: 15 0RF insulin lispro 100 unit/mL insulin pen 15 unit subcut TID 30 Days Qty: 13.5 0RF Continued amlodipine 10 mg tablet 10 mg PO DAILY hydrocodone-acetaminophen 10-325 mg tablet 1 tab PO Q6HP PRN (Reason: Pain) losartan 100 mg tablet 100 mg PO DAILY omeprazole 40 mg capsule,delayed release(DR/EC) See Rx Instructions PO .COMPLEX Rx Instructions: Unknown PO Unknown rizatriptan 10 mg tablet See Rx Instructions PO .COMPLEX Rx Instructions: Unknown PO Unknown sildenafil 100 mg tablet See Rx Instructions PO .COMPLEX Rx Instructions: Unknown PO Unknown hydrochlorothiazide 50 mg tablet 1 tab PO QDAY gabapentin 300 mg capsule 1 cap PO TID Discontinued cyclobenzaprine 10 mg tablet See Rx Instructions PO .COMPLEX Rx Instructions: Unknown PO Unknown Follow Up Plan Follow up with: Kirsten Sneed ARNP [Primary Care Provider] - 12/03/21 9:45 am (Please arrive 15 minutes early) Juan Ramon Wills DPM [Physician] - (A referral has been sent, they will contact you to schedule an appointment.) Patient Disposition: Home, Self-Care Rehab Potential: Good I certify that the patient requires SNF services: Yes Overall status at discharge: patient is progressing back to baseline Discharge Orders: Discharge Order (Routine); Ordered 11/26/21 Ordered By: Fernando Childs
== END 2021-11-26 12:04 | disposition home or self-care (01) | DRG 638 ==
LOC: ED 15:07 → ICU 18:57
PROVIDERS: ADMIT Internal Medicine; ATTEND Student in an Organized Health Care Education/Training Program